=== PATIENT | male | born 1960 | race Caucasian/White ===

== ENCOUNTER 2023-06-29 20:25 | Day surgery (SDC) | payer OTHER, SELFPAY ==
[2023-06-29 16:01] VITALS: BP 156/100
[2023-06-29] MEDS: OMNIPAQUE 50 ML PO (16:31)
[2023-06-29 16:57] LABS: % Basophils 0.4 % (0-2); % Eosinophils 0.6 % (0-6); % Immature Granulocytes 0.4 % (0-0.5); % Lymphocytes 13.2 % (20.5-51.1); % Monocytes 15.4 % (1.7-9.3); Absolute Basophils 0.1 10^3/uL (0-0.2); Absolute Eosinophils 0.1 10^3/uL (0-0.7); Absolute Immature Granulocytes 0.1 10^3/uL (0-0.05); Absolute Lymphocytes 2.1 10^3/uL (1.2-3.4); Absolute Monocytes 2.5 10^3/uL (0.1-0.6); Absolute Neutrophils 11.2 10^3/uL (1.4-6.5); Hematocrit 41.4 % (39.0-52.0); Hemoglobin 14.3 g/dL (13.0-18.0); Mean Corp Hgb Conc. 34.5 g/dL (33.0-37.0); Mean Corpuscular Hgb 31.2 pg (27.0-31.0); Mean Corpuscular Volume 90.2 fL (80.0-94.0); Mean Platelet Volume 11.2 fL (7.4-10.4); Nucleated Red Blood Cells % 0 % (-); Platelet Count 204 10^3/uL (130-400); Red Blood Cell Count 4.59 10^6/uL (4.70-6.10); Red Cell Dist. Width 14.4 % (11.5-14.5); White Blood Cell Count 16.1 10^3/uL (4.8-10.8)
[2023-06-29 17:08] LABS: ALT (SGPT) 36 U/L (0-50); AST (SGOT) 36 U/L (17-59); Albumin 4.3 g/dl (3.5-5.0); Alkaline Phosphatase 80 U/L (38-126); Blood Urea Nitrogen 13 mg/dl (9-20); Calcium 8.8 mg/dl (8.4-10.2); Carbon Dioxide 26 mmol/L (22-30); Chloride 105 mmol/L (98-107); Glucose 94 mg/dl (70-99); Lipase 97 U/L (23-300); Potassium 4.4 mmol/L (3.5-5.1); Sodium 136 mmol/L (135-145); Total Bilirubin 1.3 mg/dl (0.2-1.3); Total Protein 7.2 g/dl (6.3-8.2); eGFR > 60.00
[2023-06-29 19:03] LABS: Urine Albumin Negative (Neg - Trace); Urine Bilirubin Negative (Negative); Urine Character Clear (Clear); Urine Color Yellow; Urine Glucose Negative (Negative); Urine Ketone 1+ (Negative); Urine Leukocyte Negative (Negative); Urine Nitrite Negative (Negative); Urine Occult Blood Negative (Negative); Urine Urobilinogen Negative (Neg - 1+)
--- NOTE | 2023-06-29 19:03 | ED.GENMED ---
History of Present Illness
<Markell Shukla Jr., PA-C - Last Filed: 06/30/23 07:34>
General
Chief Complaint: Abdominal Pain
Source: patient
Exam Limitations: none
Time Seen by Provider: 06/29/23 16:22
Nursing documentation reviewed up to this point in time: agreed with
Travel History
Have you had any contact with someone who has COVID-19?: No
Do you have any symptoms of coronavirus? Fever > 100 degrees, chills, cough, shortness of breath, sore throat, loss of taste or smell, muscle aches, or headache?: No
History of Present Illness
History of Present Illness:
62-year-old male past medical history of asthma presenting to the emergency department today with concerns of right lower quad abdominal pain worsening over the past 2 days. Also is concerned he may have a hernia. Denies any change in bowel
movements nausea vomiting fevers.
Review of Systems
<Markell Shukla Jr., PA-C - Last Filed: 06/30/23 07:34>
Review of Systems
Allergies reviewed?: Yes
All Other Systems: ROS reviewed and negative except as documented in HPI and ROS
Phy Exam
<Markell Shukla Jr., PA-C - Last Filed: 06/30/23 07:34>
Physical Exam
Physical Exam:
GENERAL: Alert , in no apparent distress
EYE: pupils equal and reactive
NECK: Supple, no significant adenopathy.
ENT: o/p clr, mmm.
CARDIAC: Regular rate and rhythm .
LUNGS: Clear breath sounds bilaterally, no acute respiratory distress, no wheezes/rales/rhonchi
ABDOMEN: There is palpation to the right lower quadrant of the abdomen at McBurney's point patient also does have tenderness to the right groin area and suprapubic region. No obvious inguinal hernia on examination but does have some tenderness to
subcutaneous mass in the right sided suprapubic region.
NEUROLOGICAL: Alert and oriented, no focal neuro deficits
SKIN: Warm and dry, skin intact.
MUSCULOSKELETAL: No edema, well perfused.
PSYCH: Normal and appropriate interaction.
Course
<Markell Shukla Jr., PA-C - Last Filed: 06/30/23 07:34>
Orders/Labs/Results
Orders:
Orders
06/29/23 16:22
CT Abd/pel W Iv And Oral Contr Urgent
Comment:
Reason For Exam: rlq pain, right groin hernia
Iohexol [Omnipaque] See Protocol PO NOW STA
06/29/23 16:29
Complete Blood Count/With Diff Urgent
Comprehensive Metabolic Panel Urgent
Lipase Urgent
06/29/23 18:35
Urinalysis Reflex To Culture Urgent
Date Specimen was Collected: 06/29/23
Time Specimen was Collected: 18:34
06/29/23 19:57
Piperacillin/Tazo 3.375 Gram [Zosyn] 3.375 gram in 50 ml IV NOW
06/29/23 20:00
Admit/Transfer Patient As Directed
Co-Sign Provider:
Level of Care: Observation services
Assign to:: Medical/Surgical
Physician / Group: dr ngo
Diagnosis: acute appendicitis w/o perforation
06/29/23 20:01
Code Status As Directed
Resuscitation Status: Full Code
06/29/23 20:47
Acetaminophen [Tylenol] 650 mg PO Q4HPRN PRN
Docusate Sodium [Colace] 100 mg PO BIDPRN PRN
HYDROmorphone [Dilaudid] 0.5 mg IV Q2HPRN PRN
Ketorolac [Toradol] 15 mg IV Q6HPRN PRN
Ondansetron Injectable [Zofran] 4 mg IV Q6HPRN PRN
Polyethylene Glycol Powder [Miralax] 17 grams PO DAILYPRN PRN
06/29/23 20:47
Activity As Directed
Activity Level: Out of Bed-Early Mobility
Anti-embolism (JUAN CARLOS) Hose As Directed
Type: Thigh high
Intake/ Output As Directed
Frequency: Per unit guidelines
Sequential Compression Device [Pneumatic Compression Sleeves] As Directed
Type: Knee high
Vital Signs As Directed
Frequency: Per unit guidelines
Rx Incentive Spirometry [RESP] Routine
Frequency: q1h while awake
# of times per hour: 10
DX Deep Vein Thrombosis Video Routine
06/30/23 00:01
0.9% Sodium Chloride 1000 ml [Nss] 1,000 ml IV 100 mls/hr
06/30/23 02:00
Piperacillin/Tazo 3.375 Gram [Zosyn] 3.375 gram in 50 ml IV Q6H
06/30/23 08:00
Atorvastatin [Lipitor] 10 mg PO DAILY
Fluticasone/Salmeterol 115/21 [Advair Hfa 115/21 Mcg Inhaler] 2 puff INH R BID
Montelukast Sodium [Singulair] 10 mg PO DAILY
Abnormal Lab Results
06/29/23 06/29/23
16:29 18:35
WBC 16.1 H 10^3/uL
(4.8-10.8)
RBC 4.59 L 10^6/uL
(4.70-6.10)
MCH 31.2 H pg
(27.0-31.0)
MPV 11.2 H fL
(7.4-10.4)
Abs Immat Gran (auto) 0.1 H 10^3/uL
(0-0.05)
Absolute Neuts (auto) 11.2 H 10^3/uL
(1.4-6.5)
Absolute Monos (auto) 2.5 H 10^3/uL
(0.1-0.6)
Lymphocytes % 13.2 L %
(20.5-51.1)
Monocytes % 15.4 H %
(1.7-9.3)
Urine Ketones 1+ A
(Negative)
06/29/23 16:29
06/29/23 16:29
Vital Signs
Initial and Last Documented VS:
Initial Vital Signs
Temp Pulse Resp BP Pulse Ox
98.2 F 79 16 156/100 98
06/29/23 16:01 06/29/23 16:01 06/29/23 16:01 06/29/23 16:01 06/29/23 16:01
Last Documented Vital Signs
Temp Pulse Resp BP Pulse Ox
98.2 F 87 16 132/74 98
06/29/23 23:05 06/29/23 23:05 06/29/23 23:05 06/29/23 23:05 06/29/23 23:05
<Adán Chin PA-C - Last Filed: 06/29/23 19:57>
Orders/Labs/Results
Orders:
Orders
06/29/23 16:22
CT Abd/pel W Iv And Oral Contr Urgent
Comment:
Reason For Exam: rlq pain, right groin hernia
Iohexol [Omnipaque] See Protocol PO NOW STA
06/29/23 16:29
Complete Blood Count/With Diff Urgent
Comprehensive Metabolic Panel Urgent
Lipase Urgent
06/29/23 18:35
Urinalysis Reflex To Culture Urgent
Date Specimen was Collected: 06/29/23
Time Specimen was Collected: 18:34
06/29/23 19:57
Piperacillin/Tazo 3.375 Gram [Zosyn] 3.375 gram in 50 ml IV NOW
06/29/23 20:00
Admit/Transfer Patient As Directed
Co-Sign Provider:
Level of Care: Observation services
Assign to:: Medical/Surgical
Physician / Group: dr ngo
Diagnosis: acute appendicitis w/o perforation
06/29/23 20:01
Code Status As Directed
Resuscitation Status: Full Code
06/29/23 20:47
Acetaminophen [Tylenol] 650 mg PO Q4HPRN PRN
Docusate Sodium [Colace] 100 mg PO BIDPRN PRN
HYDROmorphone [Dilaudid] 0.5 mg IV Q2HPRN PRN
Ketorolac [Toradol] 15 mg IV Q6HPRN PRN
Ondansetron Injectable [Zofran] 4 mg IV Q6HPRN PRN
Polyethylene Glycol Powder [Miralax] 17 grams PO DAILYPRN PRN
06/29/23 20:47
Activity As Directed
Activity Level: Out of Bed-Early Mobility
Anti-embolism (JUAN CARLOS) Hose As Directed
Type: Thigh high
Intake/ Output As Directed
Frequency: Per unit guidelines
Sequential Compression Device [Pneumatic Compression Sleeves] As Directed
Type: Knee high
Vital Signs As Directed
Frequency: Per unit guidelines
Rx Incentive Spirometry [RESP] Routine
Frequency: q1h while awake
# of times per hour: 10
DX Deep Vein Thrombosis Video Routine
06/30/23 00:01
0.9% Sodium Chloride 1000 ml [Nss] 1,000 ml IV 100 mls/hr
06/30/23 02:00
Piperacillin/Tazo 3.375 Gram [Zosyn] 3.375 gram in 50 ml IV Q6H
06/30/23 08:00
Atorvastatin [Lipitor] 10 mg PO DAILY
Fluticasone/Salmeterol 115/21 [Advair Hfa 115/21 Mcg Inhaler] 2 puff INH R BID
Montelukast Sodium [Singulair] 10 mg PO DAILY
Abnormal Lab Results
06/29/23 06/29/23
16:29 18:35
WBC 16.1 H 10^3/uL
(4.8-10.8)
RBC 4.59 L 10^6/uL
(4.70-6.10)
MCH 31.2 H pg
(27.0-31.0)
MPV 11.2 H fL
(7.4-10.4)
Abs Immat Gran (auto) 0.1 H 10^3/uL
(0-0.05)
Absolute Neuts (auto) 11.2 H 10^3/uL
(1.4-6.5)
Absolute Monos (auto) 2.5 H 10^3/uL
(0.1-0.6)
Lymphocytes % 13.2 L %
(20.5-51.1)
Monocytes % 15.4 H %
(1.7-9.3)
Urine Ketones 1+ A
(Negative)
06/29/23 16:29
06/29/23 16:29
Vital Signs
Initial and Last Documented VS:
Initial Vital Signs
Temp Pulse Resp BP Pulse Ox
98.2 F 79 16 156/100 98
06/29/23 16:01 06/29/23 16:01 06/29/23 16:01 06/29/23 16:01 06/29/23 16:01
Last Documented Vital Signs
Temp Pulse Resp BP Pulse Ox
98.2 F 87 16 132/74 98
06/29/23 23:05 06/29/23 23:05 06/29/23 23:05 06/29/23 23:05 06/29/23 23:05
<Markell Shukla Jr., PA-C - Last Filed: 06/30/23 07:34>
MDM/Problems Addressed
MDM/Problems Addressed:
62-year-old male presenting to the emergency department today with concerns of right lower quad abdominal pain worsening over the past 2 days. No changes in bowel movements no vomiting no fevers on arrival patient does have tenderness to the right
lower quadrant plan for CT scan for further assessment. Vital signs showing elevated blood pressure otherwise vital signs normal. White count 16.1. Care sensation to oncoming PA pending CT scan
<Adán Chin PA-C - Last Filed: 06/29/23 19:57>
*Critical Care Note
Total Time (30-74mins, 75-104mins- exclusive of procedures): Not Applicable
<Adán Chin PA-C - Last Filed: 06/29/23 19:57>
Update Note
Update Note:
Assumed care of patient from Ravi Shukla PA-C at shift change [address] hrs[address] A[address] scan for presumed appendicitis versus incarcerated inguinal hernia
1950: CT reviewed, radiology report indicates acute appendicitis. Case discussed with general surgery, will admit for operative intervention tomorrow, will start on IV Zosyn
ED Attending Note
<Markell Shukla Jr., PA-C - Last Filed: 06/30/23 07:34>
-
Portions of this chart may have been created with voice recognition software.� Occasional wrong word or��sound alike� substitutions may have occurred due to the inherent limitations of voice recognition software.
Discharge Plan
Departure
Patient Disposition: Admit
Date of Disposition: 06/29/23
Time of Disposition: 19:56
Admit to: Med/Surg
Presentation/result/management discussed w/ accepting MD/DO: General Surgery
Discharge Problem:
Acute appendicitis
Interventions
Interventions:
*Risk Screen - Suicide Last Done: 06/29/23 16:01
*General Assessment Last Done: 06/29/23 16:01
*Neglect/Abuse Screening Last Done: 06/29/23 16:01
ED- Fall Risk Assessment Last Done: 06/29/23 18:57
*ED COVID-19 Vaccine History Last Done: 06/29/23 16:01
*Nursing Disposition Last Done: 06/29/23 22:16
FA-Uavdzw-Eomabfqdws Assessment Last Done: 06/29/23 18:57
Discharge Date and Time
Discharge Date/Time: 06/29/23 22:17
--- NOTE | 2023-06-29 20:20 | HPS.HSE ---
Addendum entered and electronically signed by Paolo Mera MD 06/30/23 10:04:
I saw and examined the patient.
The Medical Director Of Hospice's note was reviewed and I agree with the note.
Comment: Seen and evaluated. About 2 days of pain with migration to RLQ. Denies f/c/n/v. Mild ttp to RLQ without guarding. Leukocytosis noted. CT A/P with inflamed appendix and stranding, no evidence of perf or abscess. OCTOR for rohit hedrick.
Original Note:
Family Physician
-
Family Physician: Wilver Leach
Chief Complaint
-
abd pain x 2 days
History of Present Illness
62-year-old male past medical history of mild asthma, HLD presenting to the emergency department with concerns of right lower quad abdominal pain worsening over the past 2 days. Pt also has known right inguinal hernia. Denies any change in bowel
movements nausea vomiting fevers. Pain 5/[address] abd: Acute appendicitis. Right lower quadrant inflammatory fat stranding. Mild reactive wall thickening of the terminal ileum. No evidence for perforation or periappendiceal abscess formation.
Wbc 16.1
Medical History
Past Medical History
Past Medical History: Reports Asthma (mild) and Hypercholesterolemia
Past Surgical History: Reports Other (mohs left shoulder, left inguinal hernia repair 20 yrs ago)
Social History
Tobacco: Non-smoker
Alcohol: None
Drug: None
Personal:
Living: With Family
Employment: Employed
Family History
Family History: Not pertinent
Allergies / Home Medications
Allergies reflects when Allergies were last updated in [employer].
Home Medications with original date entered in [facility]
Allergy/Medication List:
Allergies
Allergy/AdvReac Type Severity Reaction Status Date / Time
NKA - No Known Allergies Allergy Uncoded 09/23/07 08:23
Home Medications
atorvastatin 10 mg tablet (Lipitor) 10 mg PO DAILY 06/29/23
bismuth subsalicylate 262 mg tablet (Pepto-Bismol) 524 mg PO BIDPRN PRN gerd 06/29/23
fluticasone 250 mcg-salmeterol 50 mcg/dose blistr powdr for inhalation (Wixela Inhub) 1 inh inhalation R BID 06/29/23
ibuprofen 200 mg tablet (Advil) 400 mg PO Q6HPRN PRN mild pain 06/29/23
montelukast 10 mg tablet (Singulair) 10 mg PO DAILY 06/29/23
psyllium 1 packet PO DAILY 06/29/23
Review of Systems
-
History Source: Patient
A 12 point ROS was completed and negative except as noted: Yes
Constitutional: Reports No Symptoms
EENT: Reports No Symptoms
Respiratory: Reports No Symptoms
Cardiac: Reports No Symptoms
Abdomen/GI: Reports Abdominal Pain (RLQ )
: Reports No Symptoms
Musculoskeletal: Reports No Symptoms
Skin: Reports No Symptoms
Neurological: Reports No Symptoms
Hematologic/Lymphatic: Reports No Symptoms
Psych: Reports No Symptoms
Physical Exam
Vital Signs
Vital Signs
Temp Pulse Resp BP Pulse Ox
98.2 F 79 16 156/100 98
06/29/23 16:01 06/29/23 16:01 06/29/23 16:01 06/29/23 16:01 06/29/23 16:01
Physical Exam
General: Well Developed, Well Nourished, No Apparent Distress, Comfortable and Pain (10/07)
HEENT: NormoCephalic, Anicteric and Moist mucous membranes
Respiratory: Clear and Non Labored Respirations
Cardiac: S1/S2 and Regular Rhythm
Breast: Deferred by me
Rectal: Deferred by Provider
Genito-urinary: Deferred by me
Musculoskeletal: No Clubbing and No Cyanosis
Skin: Warm and Dry
Neuro: Awake, Alert, Oriented, AO x 3 and No Motor Deficits
Hematologic/Lymphatic: No Lymphadenopathy
Psych: Calm
Laboratory Results
-
06/29/23 16:29
06/29/23 16:
Laboratory Results
Total Bilirubin 1.3 mg/dl (0.2-1.3) 06/29/23 16:
AST 36 U/L (17-59) 06/29/23 16:
ALT 36 U/L (0-50) 06/29/23 16:
Alkaline Phosphatase 80 U/L (38-126) 06/29/23 16:
Lipase 97 U/L (23-300) 06/29/23 16:
Impression/Plan
-
IMPRESSION:
acute appendicitis w/o perforation
PLAN:
Admit to service of Dr Mera
Med surg obs
#Acute appendicitis w/o perforation
-Npo after midnight for OR 06/30/23
-IVF NSS @100 when NPO
-Pain control: tylenol, Toradol and dilaudid
-Zofran prn nausea
-WBC 16.1 will repeat cbc,bmp
#asthma
- cont wexela inh
-cont singular
#HLD
-lipitor
-DVT proph: scd
Full code
[2023-06-29] MEDS: ZOSYN 50 IV (20:43)
[2023-06-29 22:20] VITALS: BP 156/81
[2023-06-29] MEDS: NSS 1000 IV (22:27)
[2023-06-29 22:28] VITALS: BMI 24.9
--- NOTE | 2023-06-29 22:30 | PTCARENOTE ---
Pt admitted to 2101 from ED. AAOx3. Ambulated with steady gait to bed. bedside with pt. Pt states RLQ pain is minimal at the moment. temp 99.4 bp 156/81 HR 82. Oriented to environment. Call almodovar within reach.
[2023-06-29 23:05] VITALS: BP 132/74
[2023-06-29] MEDS: SINGULAIR 10 MG PO (23:31)
[2023-06-30] MEDS: ZOSYN 50 IV ×3 (02:05→15:00)
[2023-06-30 06:20] LABS: % Basophils 0.3 % (0-2); % Immature Granulocytes 0.3 % (0-0.5); % Lymphocytes 14.8 % (20.5-51.1); % Monocytes 15.4 % (1.7-9.3); % Neutrophils 68.2 % (42.2-75.2); Absolute Eosinophils 0.2 10^3/uL (0-0.7); Absolute Immature Granulocytes 0.1 10^3/uL (0-0.05); Absolute Lymphocytes 2.1 10^3/uL (1.2-3.4); Absolute Monocytes 2.2 10^3/uL (0.1-0.6); Absolute Neutrophils 9.9 10^3/uL (1.4-6.5); Hematocrit 41.1 % (39.0-52.0); Hemoglobin 14.1 g/dL (13.0-18.0); Mean Corp Hgb Conc. 34.3 g/dL (33.0-37.0); Mean Corpuscular Hgb 30.8 pg (27.0-31.0); Mean Corpuscular Volume 89.7 fL (80.0-94.0); Mean Platelet Volume 11.2 fL (7.4-10.4); Nucleated Red Blood Cells % 0 % (-); Platelet Count 198 10^3/uL (130-400); Red Blood Cell Count 4.58 10^6/uL (4.70-6.10); Red Cell Dist. Width 14.3 % (11.5-14.5); White Blood Cell Count 14.5 10^3/uL (4.8-10.8)
[2023-06-30 06:37] LABS: Blood Urea Nitrogen 12 mg/dl (9-20); Calcium 8.8 mg/dl (8.4-10.2); Carbon Dioxide 25 mmol/L (22-30); Chloride 103 mmol/L (98-107); Estimated Creatinine Clearance 73 ml/min; Glucose 100 mg/dl (70-99); Sodium 139 mmol/L (135-145); eGFR > 60.00
[2023-06-30 06:46] LABS: Potassium 4.1 mmol/L (3.5-5.1)
[2023-06-30 07:05] VITALS: BP 137/78
[2023-06-30] MEDS: ADVAIR HFA 115/21 MCG INHALER 2 PUFF INH (08:25)
--- NOTE | 2023-06-30 10:21 | CM ---
Initial assessment completed with patient and . 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 He lives with his . He has 2 children that also live on the grounds in different dwellings. No DME or O2 equipment in
use. Full bath on 1st and 2nd floor, Bedroom on 2nd. For appendectomy this afternoon. Anticipate no needs.
--- NOTE | 2023-06-30 11:22 | OR.RPT ---
Operative Report
Operative Report
Primary Surgeon: Samaria
Assisting: Vahe PRATT
Pre-op Diagnosis: Acute appendicitis
Post-op Diagnosis: Same
Procedure Performed: Laparoscopic appendectomy
Anesthesia Type: GETA
Specimen / Cultures: Appendix
Estimated Blood Loss: 5cc
Complications: None immediate
Operative Findings: severely inflamed appendix encased in fat, unable to inspect the entire wall but suspect there may be gangrenous changes; no gross perforation, no purulence, no pelvic fluid
Date of Surgery: 06/30/23
Indications: This 62M developed right lower quadrant abdominal pain and on workup was found to have acute appendicitis. Laparoscopic appendectomy was elected.
Description of procedure: The patient was placed on the operating table in the supine position. General anesthesia was induced. A time-out was completed verifying correct patient, procedure, site, positioning, and special equipment prior to
beginning this procedure. An orogastric tube was placed. The abdomen was prepped and draped in the usual sterile fashion. A stab incision was made in left upper quadrant and the Veress needle was inserted. Proper position was confirmed by aspiration
and saline meniscus test. The abdomen was insufflated with carbon dioxide to a pressure of 12 mmHg. The patient tolerated insufflation well.
A 5mm optical trocar was then inserted at the left lower quadrant. The laparoscope was inserted and the abdomen inspected. No injuries from initial trocar placement or Veress needle insertion were noted. Additional trocars were then inserted in the
following locations: a 12-mm trocar at the umbilicus and a 5-mm trocar midline in the suprapubic space. The abdomen was inspected and no abnormalities were found. The table was placed in the Trendelenburg position with the right side up. The
appendix was adherent to the anterior pelvic wall, it was gently bluntly swept down. The tip of the appendix was encased in inflammatory fat. It was gently grasped with an atraumatic grasper and retracted toward the patient�s feet and abdominal
wall. This maneuver exposed the appendiceal blood supply which was controlled with the Ligasure device. Following this, a laparoscopic linear cutting stapler with a 45mm chahal load was deployed and used to transect the appendix at its base. The
appendix was placed in an endoscopic retrieval bag, removed through the umbilical port, and passed off the table as a specimen.
We then turned our attention to the staple line, which was noted to be hemostatic. The pelvis was inspected and no free fluid was identified. The umbilical trocar site was closed at the fascial level laparoscopically with 2-0 PDS under direct
vision. Secondary trocars were removed under direct vision and noted to be hemostatic. The laparoscope was withdrawn and the abdomen was allowed to collapse. The skin was closed with subcuticular sutures of 4-0 monocryl and topical skin adhesive.
The orogastric tube was removed.
The patient tolerated the procedure well and was taken to the postanesthesia care unit in stable condition.
[2023-06-30 11:34] VITALS: BP 137/78; BP 152/95
[2023-06-30 11:46] VITALS: BP 136/86
[2023-06-30 12:00] VITALS: BP 112/72
[2023-06-30] MEDS: NSS IV (12:01)
[2023-06-30 12:15] VITALS: BP 128/78
[2023-06-30] MEDS: NSS 1000 IV (14:59)
[2023-06-30] MEDS: TYLENOL 650 MG PO (15:03)
[2023-06-30 16:32] VITALS: BP 152/90
--- NOTE | 2023-07-01 09:30 | CM ---
Patient status post appendectomy on 06/30/23. Medically cleared for discharge to home with no additional needs on evening of 06/30/23. transported home.
== END 2023-06-30 17:16 | disposition home or self-care (01) ==
LOC: PACU 20:25
PROVIDERS: Nurse Practitioner Family; Physician Assistant; ATTENDING PHYSICIAN Surgery; EMERGENCY PHYSICIAN Emergency Medicine; FAMILY PHYSICIAN Family Medicine
DX: K35.891 Other acute appendicitis without perforation, with gangrene (principal)
CPT/HCPCS: 44970; 88304; 74177; 80048; 80053; 81003; 83690; 85025; 94640; 96365; 99285; G0378; Q9967

== ENCOUNTER 2024-07-10 06:01 | Day surgery (SDC) | payer OTHER, SELFPAY ==
[2024-06-19 14:05] VITALS: BMI 23.9
[2024-07-10] VITALS (11 sets, daily range): BP systolic 113–128; BP diastolic 71–92; BMI 23.9
[2024-07-10] MEDS: TYLENOL 1000 MG PO (06:28)
[2024-07-10] MEDS: NORMOSOL-R/PLASMALYTE-A 1000 IV (06:28)
--- NOTE | 2024-07-10 08:35 | OR.RPT ---
Addendum entered and electronically signed by Paolo Mera MD 07/10/24 11:55:
Correction: Indications: robot assisted laparoscopic repair of right inguinal hernia was planned.
Original Note:
Operative Report
Operative Report
Primary Surgeon: Samaria
Assisting: Anu PRATT
Pre-op Diagnosis: Right inguinal hernia
Post-op Diagnosis: Same
Procedure Performed: Robot assisted laparoscopic repair of right inguinal hernia
Anesthesia Type: GETA
Specimen / Cultures: None
Estimated Blood Loss: 2cc
Complications: None immediate
Operative Findings: Right indirect defect, no cord lipoma, moderately fatty cord not skeletonized, XL MID 3D Max
Date of surgery: 07/10/24
Indications:� This 63M developed a symptomatic right inguinal hernia. Robot assisted laparoscopic repair of bilateral inguinal hernias was planned.
Description of procedure:� The patient was taken to the operating room and positioned into supine position. The patient�s abdomen was prepped and draped in standard sterile fashion. A time-out was completed verifying correct patient, procedure,
site, positioning, and implants and special equipment prior to beginning this procedure.
The groin hernia was manually reduced. A stab incision was made in the left upper quadrant, a Veress needle was inserted and proper position was confirmed by aspiration and saline drop test. Following this, pneumoperitoneum was created with
insufflation of carbon dioxide to 12 mmHg. Then a 8mm robotic trocar was inserted above and to the left of the umbilicus. A laparoscope was inserted and the area of initial trocar entry and Veress needle placement were both inspected and no injuries
were found. Two 8mm trocars were then placed lateral to the rectus sheath under direct visualization.
Both inguinal regions were inspected and the median umbilical ligament, medial umbilical ligament, and lateral umbilical fold were identified. Attention was turned to the right groin. The peritoneum was incised transversely above the defect and a
flap was developed in the caudad direction. Darius�s ligament was identified ultimately dissected to its junction with the iliac vein and the space of Retzius was developed bluntly.� The dissection was continued inferiorly to the iliopubic tract,
with care taken to avoid injury to the femoral branch of the genitofemoral nerve and the lateral femoral cutaneous nerve. The cord structures were parietalized.
The direct space was inspected and no hernia defect was identified. The femoral space was inspected no defect was identified.� The indirect space was inspected and a hernia was identified and reduced by gentle traction. The canal was inspected and
no cord lipoma was identified, the cord was noted to be moderately fatty and was not skeletonized.
Extra large right MID 3D max mesh was passed through a trocar. The mesh was placed into the preperitoneal space and moved into position to lay flat and completely cover the direct, indirect, and femoral spaces with overlap at the midline. The mesh
was secured into place using 2-0 vicryl suture to Darius�s ligament medially and laterally. Care was taken to avoid the inferolateral triangles containing the iliac vessels and genital nerves. The peritoneal flap was closed over the mesh and secured
with 2-0 monocryl stratafix suture in similar positions of safety. A 14g angiocath was used to decompress the preperitoneal space revealing good seal and all mesh in good position without folding or curling.
After ensuring adequate hemostasis, the trocars were removed and the pneumoperitoneum allowed to escape. The trocar incisions were closed at the skin level using 4-0 monocryl and topical skin adhesive. All counts were correct and the patient
tolerated the procedure well and was taken to the postanesthesia care unit in stable condition.
[2024-07-10] MEDS: SUBLIMAZE 50 MCG IV (08:53)
--- NOTE | 2024-07-10 09:42 | SUR.PHASEI ---
patient c/o pain on arrival - medicated by TELECOMM[employer]ICATION SYSTEMS DES[employer]ER with some relief and then 1 dose of Fentanyl - able to doze after medication. Vss - [place] pain controlled and ready for SDS
== END 2024-07-10 10:29 | disposition home or self-care (01) ==
LOC: SDS 06:01
PROVIDERS: ATTENDING PHYSICIAN Surgery; FAMILY PHYSICIAN Family Medicine
DX: K40.90 Unilateral inguinal hernia, without obstruction or gangrene, not specified as recurrent (principal)
CPT/HCPCS: 49650; S2900; 36415; 93005; C1781